=== PATIENT | male | born 1965 | race Asian ===

== ENCOUNTER 2017-01-25 07:53 | Emergency (ER) | payer OTHER ==
[~2017-01-25] VITALS: Ht 172.7 cm; Wt 77.3 kg
[2017-01-25] MEDS ORDERED: IBUPROFEN 100 MG/5 ML SUSPENSION UDCUP PO ONE (08:45)
[2017-01-25] MEDS ORDERED: IBUPROFEN 600 MG TABLET PO ONE (09:00)
[2017-01-25 10:31] VITALS: BP 121/75
== END 2017-01-25 10:33 | disposition home or self-care (01) ==
LOC: EMS 07:56
DX: M79.621 Pain in right upper arm (principal); F12.90 Cannabis use, unspecified, uncomplicated; Z88.8 Allergy status to other drugs, medicaments and biological substances
CPT/HCPCS: 99284